=== PATIENT | female | born 1985 | race Caucasian/White ===

== ENCOUNTER 2018-11-28 07:39 | Day surgery (SDC) | payer BC, OTHER ==
--- NOTE | 2018-11-28 07:28 | PCM.PREANE ---
Preanesthetic Assessment - Anesthesia/Transfusion/Family Hx Anesthesia History: Prior Anesthesia Reaction Type of Anesthesia Reaction: Excessive Nausea/Vomiting Family History of Anesthesia Reaction: No Transfusion History: No Prior Transfusion(s) Intubation History: Unknown - Review of Systems General: No Symptoms Pulmonary: No Symptoms (Asthma-last inhaler used 2 weeks ago. (exercise/cold induced)) Cardiovascular: Palpitations (History of PVC's) Gastrointestinal: No Symptoms Neurological: No Symptoms (Motion Sickness Bad) - Physical Assessment NPO Status Date: 11/27/18 NPO Status Time: 19:00 Pulse: 74 O2 Sat by Pulse Oximetry: 99 Respiratory Rate: 16 Blood Pressure: 119/72 Temperature: 36.8 C Height: 1.6 m Weight: 67 kg ASA Class: 2 Mental Status: Alert & Oriented x3 Airway Class: Mallampati = 2 Dentition: Reports: Normal Dentition (upper and lower retainer's), Caries Thyro-Mental Finger Breadths: 3 Mouth Opening Finger Breadths: 3 ROM/Head Extension: Full Lungs: Clear to Auscultation, Normal Respiratory Effort Cardiovascular: Regular Rate, Regular Rhythm, No Murmurs - Lab Values: Labs reviewed and noted and within acceptable ranges to proceed with scheduled procedure. - Allergies Allergies/Adverse Reactions: Allergies Allergy/AdvReac Type Severity Reaction Status Date / Time banana Allergy Headache Verified 11/27/18 13:43 grape Allergy Anaphylactic Verified 11/27/18 13:43 Shock latex Allergy Hives Verified 11/27/18 13:43 levofloxacin [From Levaquin] Allergy Hives Verified 11/27/18 13:43 naproxen sodium [From Aleve] Allergy Hives Verified 11/27/18 13:43 tree nut Allergy Anaphylactic Verified 11/27/18 13:43 Shock venom-honey bee Allergy Anaphylactic Verified 11/27/18 13:43 [bee venom (honey bee)] Shock - Anesthesia Plan Pre-Op Medication Ordered: None - Acknowledgements Anesthesia Type Planned: General Anesthesia Pt an Appropriate Candidate for the Planned Anesthesia: Yes Alternatives and Risks of Anesthesia Discussed w Pt/Guardian: Yes Pt/Guardian Understands and Agrees with Anesthesia Plan: Yes PreAnesthesia Questionnaire HEENT History: Reports: Impaired Vision Cardiovascular History: Reports: None Respiratory History: Reports: Asthma Gastrointestinal History: Reports: Other (See Below) Other Gastrointestinal History: nausea Genitourinary History: Reports: None IMPLEMENTATION SPECIALIST History: Reports: Other (See Below) Other OB/BYN History: pelvic pain, irregular mense, ovarian cyst, exploratory laparotomy Musculoskeletal History: Reports: None Neurological History: Reports: None Psychiatric History: Reports: None Endocrine/Metabolic History: Reports: None Hematologic History: Reports: None Immunologic History: Reports: None Oncologic (Cancer) History: Reports: None Dermatologic History: Reports: None - Past Surgical History HEENT Surgical History: Reports: Tonsillectomy Cardiovascular Surgical History: Reports: None Respiratory Surgical History: Reports: None GI Surgical History: Reports: Appendectomy Female Surgical History: Reports: None Male Surgical History: Reports: None Endocrine Surgical History: Reports: None Neurological Surgical History: Reports: None Musculoskeletal Surgical History: Reports: None Dermatological Surgical History: Reports: None - SUBSTANCE USE Smoking Status *Q: Never Smoker Recreational Drug Use History: No - HOME MEDS Home Medications: Home Meds EPINEPHrine [Epipen 2-Marques] 0.3 ml IM ASDIRECTED PRN 01/06/15 [History] Ethinyl Estradiol/Norgestrel [Cryselle 28-Day] 1 tab PO DAILY 11/27/18 [History] Ondansetron HCl [Zofran] 4 mg PO Q6H 11/27/18 [History] - CURRENT (IN HOUSE) MEDS Current Meds: Current Medications Lactated Ringer's (Ringers, Lactated) 1,000 mls @ 125 mls/hr IV ASDIRECTED CARLA Stop: 11/28/18 23:00 Lidocaine/Sodium Bicarbonate (Buffered Lidocaine 1% In Ns 8.4%) 0.25 ml IDERM ONETIME PRN PRN Reason: Prior to IV Start Stop: 11/28/18 23:00 Sodium Chloride (Saline Flush) 10 ml FLUSH ASDIRECTED PRN PRN Reason: Keep Vein Open Stop: 11/28/18 23:00
[~2018-11-28 07:39] MED LIST: Lactated Ringers 1,000 ML IV SCH; Lidocaine 1%/Sod Bicarbonate in NS 8.4% 1 ML Syringe IDERM PRN; Sodium Chloride 0.9% 10 ML Syringe FLUSH PRN
[2018-11-28] MEDS ORDERED: Ondansetron 4 MG/2 ML SDV ONE (07:59)
[2018-11-28] MEDS ORDERED: Propofol 200 MG/20 ML SDV ONE (07:59)
[2018-11-28] MEDS ORDERED: Lactated Ringers 1,000 ML ONE (07:59)
[2018-11-28] MEDS ORDERED: HYDROmorphone 0.5 MG/0.5 ML Syringe ONE (07:59)
[2018-11-28] MEDS ORDERED: Dexamethasone 4 MG/ML SDV ONE ×2 (07:59→11:07)
[2018-11-28] MEDS ORDERED: Rocuronium 50 MG/5 ML Vial ONE (07:59)
[2018-11-28] MEDS ORDERED: ceFAZolin 1 GM Vial ONE (07:59)
[2018-11-28] MEDS ORDERED: Midazolam 1 MG/ML 2 ML SDV ONE (07:59)
[2018-11-28] MEDS ORDERED: Ketorolac 30 MG/ML SDV ONE (07:59)
[2018-11-28] MEDS ORDERED: Lidocaine 1% PF 2 ML SDV ONE (07:59)
[2018-11-28] MEDS ORDERED: fentaNYL 250 MCG/5 ML SDV ONE (08:00)
[2018-11-28] MEDS ORDERED: Dextrose 5% in Water 100 ML IV ONE (08:00)
[2018-11-28] MEDS ORDERED: Scopolamine 1.5 MG Transdermal Patch TOP ONE (08:11)
[2018-11-28] MEDS ORDERED: diphenhydrAMINE 50 MG/ML SDV ONE (08:34)
[2018-11-28] MEDS ORDERED: Lidocaine 1% with EPINEPHrine 1:100,000 20 ML MDV ONE (08:38)
[2018-11-28] MEDS ORDERED: Sodium Chloride 0.9% 50 ML SDV ONE (08:38)
[2018-11-28] MEDS ORDERED: Dextrose 5% in Water 100 ML ONE (09:24)
[2018-11-28] MEDS ORDERED: Phenylephrine/Normal Saline 100 MCG/ML 10 ML Syringe ONE (09:29)
[2018-11-28] MEDS: Bupivacaine 0.5% 30 ML SDV ONE ×2 (09:30→10:04)
[2018-11-28] MEDS ORDERED: ePHEDrine 50 MG/ML SDV IVPUSH PRN (09:35)
[2018-11-28] MEDS ORDERED: Haloperidol Lactate 5 MG/ML SDV IVPUSH ONE (09:35)
[2018-11-28] MEDS ORDERED: HYDROmorphone 0.5 MG/0.5 ML Syringe IVPUSH PRN (09:35)
[2018-11-28] MEDS ORDERED: Albuterol 0.083% 2.5 MG/3 ML Neb Soln NEB PRN (09:35)
[2018-11-28] MEDS ORDERED: Ondansetron 4 MG/2 ML SDV IVPUSH PRN (09:35)
[2018-11-28] MEDS ORDERED: fentaNYL 100 MCG/2 ML SDV IVPUSH PRN (09:35)
[2018-11-28] MEDS: Methylene Blue 50 MG/10 ML Ampule ONE ×2 (09:45→10:05)
[2018-11-28] MEDS ORDERED: Phenylephrine 1 MG in Sodium Chloride 0.9% 10 ML IV SCH (09:45)
[2018-11-28] MEDS ORDERED: Neostigmine Methylsulfate 1 MG/ML 5 ML Syringe ONE (09:46)
[2018-11-28] MEDS ORDERED: ePHEDrine/Normal Saline 25 MG/5 ML Syringe ONE (10:12)
[2018-11-28] MEDS ORDERED: fentaNYL 100 MCG/2 ML SDV ONE (10:19)
[2018-11-28] MEDS ORDERED: Lidocaine 2% Jelly 5 ML Tube ONE (10:53)
[2018-11-28] MEDS ORDERED: Acetaminophen/oxyCODONE 325-5 MG Tab PO PRN (11:13)
--- NOTE | 2018-11-28 11:17 | PCM.POSTAN ---
POST ANESTHESIA ASSESSMENT - MENTAL STATUS Mental Status: Alert, Oriented - VITAL SIGNS Pulse Rate: 87 SaO2: 99 Resp Rate: 14 Blood Pressure: 102/73 Temperature: 97.8 F - RESPIRATORY Respiratory Status: Respiratory Rate WNL, Airway Patent, O2 Saturation Stable, Supplemental Oxygen - CARDIOVASCULAR CV Status: Pulse Rate WNL, Blood Pressure Stable - GASTROINTESTINAL GI Status: No Symptoms - PAIN Pain Score: 7 - POST OP HYDRATION Hydration Status: Adequate & Stable
--- NOTE | 2018-11-28 11:30 | PCM.OPNOTE ---
- General Post-Op/Procedure Note Date of Surgery/Procedure: 11/28/18 Operative Procedure(s): 1. Laparoscopy with fulguration of pelvic adhesions 26550. 2. Chromotubation 27150. 3. Bilateral ureteral labia minora plasty partial vulvectomy 07502 Findings: At time laparoscopy patient is noted to have adhesions from the omentum to the right pelvic sidewall. These were taken down in a blunt and sharp fashion. The appendiceal stump was somewhat adhered to the right pelvic sidewall although this could be normal reflection of peritoneum. Patient had passed some adhesions of the left sigmoid colon to the back side of the left ovary. These were moderately dense. Anterior posterior cul-de-sac were within normal limits. Bilateral fallopian tubes were normal in appearance and spilled dye well with chromotubation liver edge both sides were within normal limits. No adhesions noted to the umbilicus.. Pre Op Diagnosis: 1. Pelvic pain. 2. Ovarian cysts. 3. Bilateral labia minora hypertrophy Post-Op Diagnosis: Same with polycystic ovarian syndrome and pelvic adhesive disease. Anesthesia Technique: Combo Spinal/Epidural Other Anesthesia Type: Marcaine 0.5% 3-5 mL at each Port site Primary Surgeon: Panfilo Bruno Secondary Surgeon: Sarwat Jansen Anesthesia Provider: Marge Dias Waste Cotton Cleaner: Niall Burdick Waste Cotton Cleaner Was Necessary: Assistance, retraction, or your care and patient safety. Fluid Replacement, Intraop: 1,700 Output, Urine Amount: 900 EBL in mLs: 10 Drain/Tube Comments:: Indwelling bladder catheter during laparoscopic portion of procedure. Complications: None Condition: Good Free Text/Narrative:: Surgery duration: 79 minutes Procedure: The patient was taken to the operating room and placed in supine position on the operative table. She had sequential compression stockings in place for DVT prophylaxis and had been given 2 g of Ancef IV for infection prophylaxis. She was administered general endotracheal anesthesia. After administration of anesthesia the patient was placed in dorsal lithotomy position and prepped and draped in usual fashion. An indwelling bladder catheter was placed as was a uterine manipulator. It should be noted the uterus sounded to 8 cm and was noted to be anterior and mid position. Left upper abdominal quadrant incision site and suprapubic site were then infiltrated with approximately 3-4 mL of Marcaine 0.5%. 5 mm incisions were made in these areas. Varies needle was placed in the infraumbilical incision site and pneumoperitoneum was established was in 2 L of CO2. Eventually left lower quadrant 5 mm port site was also established using same routine. The laparoscopic sleeve was then placed as was the scope. Under direct visualization the suprapubic site was developed with a 5 mm port. Pelvis was evaluated findings as above. Findings are noted as described above. Adhesions were taken down from the right pelvic sidewall. Attempt was made to remove the adhesions between the left ovary and the left descending colon/ sigmoid colon. These Were Removed but Not Entirely Due To Concern about the Intimate nature of the Adhesions with between the 2 Structures. Chromotubation was done and showed good fill and spill of the fallopian tubes with methylene blue. Because the polycystic ovarian syndrome findings decision was made to do ovarian epithelium drilling using the Harmonic scalpel. Approximately 25-35 drilling each of the ovaries. Each with release of a small amount of serous fluid. At this point the procedure and the the pneumoperitoneum was reversed. The lower sleeves having been removed under direct visualization. The upper port was removed and the incisions were closed with single subcuticular interrupted suture of 3-0 Monocryl. The incisions were further approximated with Dermabond skin glue. The uterine manipulator and Rodriguez catheter removed. Patient was returned to the supine position and awakened from general endotracheal anesthesia. The bilateral labia minora plasty/partial vulvectomy was then performed. Labia were assessed. Findings were as described. Left labia greater in size on the right labia. Both protruded significantly from the base of the labia with significant redundancy. This extended from anterior to posterior aspects of the labia minora. Per patient desire AV plasty was performed. The right labia was done first. A line was drawn from anterior to posterior at the margin of which the incision was to be made. Using hemostats the edge of the labia was then crimped. The excess labia was removed distal to the clamps. Clamps were then removed and sutures were placed. 4-0 Monocryl suture placed in an interrupted fashion. At this time then the left labia minora was managed in a similar fashion attempting to create a symmetrical result Gennaro on the right labia minora. Interrupted sutures were placed again using 4-0 Monocryl. There was small amount of bleeding on the right labia where a stitch and done. This was sutured with a small [id number] suture of 4-0 Monocryl. Patient was awakened from general endotracheal anesthesia. After awakening from anesthesia patient had significant episode of retching but with no emesis. When this happened patient had a little bit of bleeding from the right labia minora repair site. It appeared that a small 5 mm hematoma may have formed. It did not appear overtly expanding and no further bleeding was noted. Patient was sent to the recovery room. She was given Haldol to assist with the emesis. He also had scopolamine patch in place for nausea control. She left the operating room in good condition.
--- NOTE | 2018-11-28 12:32 | PCM48HPAN ---
Post Anesthesia Note - EVALUATION WITHIN 48HRS OF ANESTHETIC Vital Signs in Normal Range: Yes Patient Participated in Evaluation: Yes Respiratory Function Stable: Yes Airway Patent: Yes Cardiovascular Function Stable: Yes Hydration Status Stable: Yes Pain Control Satisfactory: Yes Nausea and Vomiting Control Satisfactory: Yes Mental Status Recovered: Yes (feeling better- up to bathroom) Pulse Rate: 87 Resp Rate: 15 Temperature: 97.8 F Blood Pressure: 102/73
[2018-11-28 13:27] VITALS: BP 111/72
== END 2018-11-28 14:02 | disposition home or self-care (01) ==
LOC: JD.SDS 07:39
PROVIDERS: ATTEND Obstetrics & Gynecology
DX: N73.6 Female pelvic peritoneal adhesions (postinfective) (principal); E28.2 Polycystic ovarian syndrome; N90.60 Unspecified hypertrophy of vulva; J45.909 Unspecified asthma, uncomplicated; Z91.018 Allergy to other foods; Z88.6 Allergy status to analgesic agent; Z88.1 Allergy status to other antibiotic agents; Z91.030 Bee allergy status; Z91.040 Latex allergy status; Z79.899 Other long term (current) drug therapy
CPT/HCPCS: 56620; 58662; 81025; A9270; J0690; J1100; J1170; J1200; J1630; J1885; J2001; J2250; J2370; J2405; J2704; J2710; J3010; J3490; J7050; J7060; J7120